=== PATIENT | female | born 1995 | race Caucasian/White ===

== ENCOUNTER 2017-02-15 12:38 | Emergency (ER) | payer OTHER ==
[~2017-02-15] VITALS: Ht 160 cm; Wt 59.0 kg
[~2017-02-15 12:38] MED LIST: TYLENOL PRN FEVER
[2017-02-15 13:23] VITALS: BP 124/78
--- NOTE | 2017-02-15 14:37 | NUR ---
Patient being evaluated by Dr. Tapia in overflow.
--- NOTE | 2017-02-15 14:40 | NUR ---
TALKING TO PATIENT REGARDING XR RESULTS RT. HAND
[2017-02-15 14:50] VITALS: BP 122/73
--- NOTE | 2017-02-15 14:50 | NUR ---
Chart checked and completed. The patient's care was reviewed and supervised by Lissy Waterman RN.
== END 2017-02-15 14:50 | disposition home or self-care (01) ==
LOC: MED 12:38
DX: S60.221A Contusion of right hand, initial encounter (principal); W22.8XXA Striking against or struck by other objects, initial encounter; Y93.89 Activity, other specified; Y92.89 Other specified places as the place of occurrence of the external cause; Y99.8 Other external cause status

== ENCOUNTER 2018-10-26 11:08 | Emergency (ER) | payer OTHER ==
[~2018-10-26] VITALS: Ht 160 cm; Wt 62.6 kg
[2018-10-26 11:17] VITALS: BP 117/81
--- NOTE | 2018-10-26 11:30 | NUR ---
PT. BIB MOTHER C/O BACK PAIN X 2 DAYS. PT STATES HER "BACK PAIN STARTS FROM THE TAIL BONE AND SHOOTS UP, ALL THE WAY TO THE NECK AREA". NO TRAUMA/INJURY. RR EVEN AND UNLABORED. DENIES ANY LOSS OF CONSCIOUSNESS. VSS. MOTHER AT BEDSIDE. WILL CONTINUE TO MONITOR. ROM INTACT. CAP REFILL LESS THAN 3 SEC. SAFETY PRECAUTIONS IN PLACE.
--- NOTE | 2018-10-26 11:46 | NUR ---
Patient being evaluated by physician at bedside.
[2018-10-26] MEDS ORDERED: HYDROcodone/APAP 5/325 MG 1 TAB TAB PO ONE (12:30)
--- NOTE | 2018-10-26 12:39 | NUR ---
PT. TAKEN TO XRAY VIA WHEELCHAIR BY TECH.
--- NOTE | 2018-10-26 13:45 | NUR ---
PT. RESTING COMFORTABLY IN BED, RR EVEN AND UNLABORED. VSS. WILL CONTINUE TO MONITOR.
[2018-10-26 14:45] VITALS: BP 120/80
--- NOTE | 2018-10-26 14:45 | NUR ---
Patient discharged with v/s stable. Written and verbal after care instructions given and explained. Patient alert, oriented and verbalized understanding of instructions. Ambulatory with steady gait. All questions addressed prior to discharge. ID band removed. Patient advised to follow up with PMD. Rx of NORCO 5/325, AND VALIUM 5MG given. Patient educated on indication of medication including possible reaction and side effects. Opportunity to ask questions provided and answered.
== END 2018-10-26 14:45 | disposition home or self-care (01) ==
LOC: MED 11:08
DX: S39.012A Strain of muscle, fascia and tendon of lower back, initial encounter (principal); Z79.899 Other long term (current) drug therapy; Z90.49 Acquired absence of other specified parts of digestive tract; X58.XXXA Exposure to other specified factors, initial encounter; Y93.89 Activity, other specified; Y92.89 Other specified places as the place of occurrence of the external cause; Y99.8 Other external cause status
CPT/HCPCS: 72110; 81002; 81025; 99283

== ENCOUNTER 2018-11-15 16:15 | Emergency (ER) | payer OTHER ==
[~2018-11-15] VITALS: Ht 157.5 cm; Wt 58.1 kg
[2018-11-15 16:21] VITALS: BP 115/83
--- NOTE | 2018-11-15 16:27 | NUR ---
PATIENT AMBULATED TO BED 7 AT THIS TIME.
[2018-11-15] MEDS ORDERED: diphenhydrAMINE 50 MG CAP PO ONE (16:30)
--- NOTE | 2018-11-15 16:33 | NUR ---
PATIENT PRESENTS TO ED WITH THE CHIEF C/O HIVES ALL OVER BODY. MOSTLY UPPER BODY. ITCHY HIVES. PT STATES SHE GOT HIVES AFTER SHE ATE THIS MORNING. PMH: NONE RX: ALLERGY MEDICATION . DENIES N/V. SKIN IS PINK/WARM/DRY. AAOX4 WITH EVEN AND STEADY GAIT. PT DENIES ANY FEVER, CP, SOB, OR COUGH AT THIS TIME; PATIENT STATES PAIN OF 0/10 AT THIS TIME; VSS; PATIENT POSITIONED FOR COMFORT; HOB ELEVATED; BEDRAILS UP X2; BED DOWN. ER MD MADE AWARE OF PT STATUS.
--- NOTE | 2018-11-15 17:27 | NUR ---
PT STATED HIVES GETTING BETTER. NO C/O ITCHYNESS AT THIS TIME.
[2018-11-15 19:03] VITALS: BP 112/66
== END 2018-11-15 19:03 | disposition home or self-care (01) ==
LOC: MED 16:15
DX: L50.0 Allergic urticaria (principal); F17.210 Nicotine dependence, cigarettes, uncomplicated; Z90.49 Acquired absence of other specified parts of digestive tract; Z79.1 Long term (current) use of non-steroidal anti-inflammatories (NSAID)
CPT/HCPCS: 99283; Q0163

== ENCOUNTER 2019-05-11 08:15 | Emergency (ER) | payer OTHER ==
[~2019-05-11] VITALS: Ht 157.5 cm; Wt 64.4 kg
[2019-05-11 08:21] VITALS: BP 118/72
--- NOTE | 2019-05-11 08:28 | NUR ---
PT AMBULATED TO ER BED 07
--- NOTE | 2019-05-11 08:31 | NUR ---
PROVIDED PT WITH URINE CUP
--- NOTE | 2019-05-11 08:43 | NUR ---
PT BIB SELF C/O WEAKNESS & LLQ PAIN 05/26 X 8 DAYS. PT STATES SHE HAS ALWAYS HAD IRREGULAR PERIODS BUT THIS ONE HAS BEEN VERY HEAVY, MORE THAN ONE PAD & TAMPON PER HOUR SINCE YESTERDAY. PT REPORTS N/V WELL. NO FOULD ORDER FORM DIACHARGE. DENIES ANY ITCHING OR BURINING SENESWTAION. DENIES ANY DIZZINESS AT THIS TIME. ER MD TO SEE THE PT. HX: NONE RX: NONE
[2019-05-11] MEDS ORDERED: KETOROLAC 60 MG/2 ML VIAL IM ONE (08:45)
--- NOTE | 2019-05-11 08:54 | NUR ---
PT MEDICATED WITH PAIN MEDS AT THIS TIME.
[2019-05-11 09:07] LABS: BASOPHILS # (AUTO) 0.1 K/uL (0.00-0.22); BASOPHILS % (AUTO) 0.8 % (0.0-2.0); EOSINOPHILS # (AUTO) 0.1 K/uL (0-0.4); EOSINOPHILS % (AUTO) 1.7 % (0.0-4.0); HEMATOCRIT 38.9 % (36-48); HEMOGLOBIN 12.8 g/dL (12.0-16.0); LYMPHOCYTES # (AUTO) 1.7 K/uL (2.5-16.5); LYMPHOCYTES % (AUTO) 24.4 % (20.5-51.1); MEAN CORPUSCULAR HEMOGLOBIN 28 pg (27-31); MEAN CORPUSCULAR HGB CONC 33 g/dL (33-37); MEAN CORPUSCULAR VOLUME 85.5 fL (80-94); MONOCYTES # (AUTO) 0.5 K/uL (0.8-1.0); MONOCYTES % (AUTO) 7.7 % (1.7-9.3); NEUTROPHILS # (AUTO) 4.5 K/uL (1.8-7.7); NEUTROPHILS % (AUTO) 65.4 % (42.2-75.2); PLATELET COUNT (AUTO) 312 K/uL (140-450); RED BLOOD CELL COUNT(AUTO) 4.55 MIL/uL (4.20-5.40); RED CELL DISTRIBUTION WIDTH 13.3 % (11.6-13.7); WHITE BLOOD COUNT (AUTO) 6.8 K/uL (4.8-10.8)
[2019-05-11 09:07] LABS: BILIRUBIN,URINE NEGATIVE (NEGATIVE); BLOOD, URINE 3+ (NEGATIVE); COLOR,URINE DARK YELLOW (YELLOW); LEUKOCYTE ESTERASE ,URINE NEGATIVE (NEGATIVE); NITRITE, URINE NEGATIVE (NEGATIVE); PH,URINE 6.5 (5.0-9.0); UGLUCOSE NEGATIVE (NEGATIVE)
--- NOTE | 2019-05-11 09:08 | NUR ---
US AT BEDSIDE
[2019-05-11 09:23] LABS: ANION GAP 8.5 (8-16); CARBON DIOXIDE 29.2 mmol/L (21-32); CREATININE 0.9 mg/dL (0.6-1.3); POTASSIUM 4.7 mmol/L (3.5-5.1)
[2019-05-11 09:24] LABS: APPEARANCE,URINE SLIGHTLY HAZY (CLEAR)
[2019-05-11 09:29] LABS: ALBUMIN 3.9 g/dL (3.4-5.0); TOTAL BILIRUBIN 0.2 mg/dL (0.0-1.0)
--- NOTE | 2019-05-11 10:00 | NUR ---
CHECKED ON PT. RESTING COMFORTABLY IN HER BED. NO S/SX OF DISTRESS NOTED. WILL CONTINUE TO MONITOR PT. PT STATES HER PAIN AHS BEEN CONTROLLED AFTER HAVING PAIN MEDS.
[2019-05-11 10:55] VITALS: BP 104/55
== END 2019-05-11 10:55 | disposition home or self-care (01) ==
LOC: MED 08:15
DX: N93.8 Other specified abnormal uterine and vaginal bleeding (principal); N94.6 Dysmenorrhea, unspecified; Z79.899 Other long term (current) drug therapy; Z90.49 Acquired absence of other specified parts of digestive tract
CPT/HCPCS: 36415; 76830; 80053; 81001; 81025; 85025; 87086; 93976; 96372; 99284; J1885; Q0092

== ENCOUNTER 2019-10-18 10:02 | Emergency (ER) | payer SELFPAY ==
[~2019-10-18] VITALS: Ht 157.5 cm; Wt 68.0 kg
[2019-10-18 10:06] VITALS: BP 157/87
--- NOTE | 2019-10-18 10:13 | NUR ---
PATIENT AMBULATED WITH STEADY GAIT TO BED 9.
--- NOTE | 2019-10-18 10:24 | NUR ---
C/O L SIDE HEAD PAIN AND EAR RINGING X2 DAYS. PT REPORTS WAKING UP IN THE MIDDLE OF THE NIGHT AND TRIPPING OVER A FAN IN BED ROOM. PT STATES SHE DOES NOT KNOW IF SHE LOST CONSCIOUSNESS BUT SHE HAS FELT NAUSEOUS SINCE THEN. PT ALSO REPORTS REALLY DARK VAGINAL BLEEDING AND CLOTS RECENTLY X1 WEEK AND STATES SHE DOES NOT KNOW IF SHE HAD A MISCARRAIGE AND WOULD LIKE TO FIND OUT. DENIES V/D; SKIN IS PINK/WARM/DRY; AAOX4 WITH EVEN AND STEADY GAIT; LUNGS CLEAR BL; HR EVEN AND REGULAR; PT DENIES ANY FEVER, CP, SOB, OR COUGH AT THIS TIME; PATIENT STATES PAIN OF 6/10 AT THIS TIME; VSS; PATIENT POSITIONED FOR COMFORT; HOB ELEVATED; BEDRAILS UP X2; BED DOWN. ER MADE AWARE OF PT STATUS.
[2019-10-18] MEDS ORDERED: ONDANSETRON 4 MG ODT PO ONE (11:15)
[2019-10-18] MEDS ORDERED: KETOROLAC 60 MG/2 ML VIAL IM ONE (11:50)
[2019-10-18 12:11] VITALS: BP 128/78
--- NOTE | 2019-10-18 12:12 | NUR ---
Patient discharged with v/s stable. Written and verbal after care instructions given and explained. Patient alert, oriented and verbalized understanding of instructions. Ambulatory with steady gait. All questions addressed prior to discharge. ID band removed. Patient advised to follow up with PMD. Rx of ZOFRAN AND MOTRIN given. Patient educated on indication of medication including possible reaction and side effects. Opportunity to ask questions provided and answered.
== END 2019-10-18 12:12 | disposition home or self-care (01) ==
LOC: MED 10:02
DX: R51 Headache (principal); R11.2 Nausea with vomiting, unspecified; Z90.89 Acquired absence of other organs; W01.0XXA Fall on same level from slipping, tripping and stumbling without subsequent striking against object, initial encounter; Y93.89 Activity, other specified; Y92.89 Other specified places as the place of occurrence of the external cause; Y99.8 Other external cause status
CPT/HCPCS: 81002; 81025; 96372; 99283; J1885; Q0162

== ENCOUNTER 2020-10-01 20:33 | Emergency (ER) | payer OTHER ==
--- NOTE | 2020-10-01 21:05 | NUR ---
PATIENT CALLED TO BE TRIAGE NO RESPONSE PATIENT LEFT WITHOUT BEING SEEN BY DR. WALKER. NO FURTHER CARE PROVIDED FOR PATIENT.
--- NOTE | 2020-10-01 21:10 | NUR ---
CALLED FOR THE SECOND TIME, NO RESPONSE
--- NOTE | 2020-10-01 21:15 | NUR ---
CALLED FOR THE THIRD TIME NO RESPONSE
== END 2020-10-01 21:05 | disposition left against medical advice (07) ==
LOC: MED 20:33
DX: Z53.21 Procedure and treatment not carried out due to patient leaving prior to being seen by health care provider (principal)